=== PATIENT | female | born 1985 | race Caucasian/White ===

== ENCOUNTER 2016-07-17 10:54 | Day surgery (SDC) | payer BC, OTHER ==
--- NOTE | ~2016-07-17 | EGD ---
EGD REPORT [facility] [address] [id number] NAME: JOÃO REYES : 83 STATUS : REG [facility]#: [id number] AGE: 31 ADM/REG DATE : 07/17/16 MR#: [id number] REPORT SERV DATE: 07/17/16 DICTATED BY: NOEL LOCK DATE: 07/17/16 REPORT STATUS : Draft TRANSCRIBED BY: [facility] DATE: 07/17/16 Endoscopy Center Patient Name: João Reyes Date of : 1985 Attending MD: NOEL LOCK MD Procedure Date No Time: 07/17/2016 Procedure: Upper GI endoscopy Indications: Follow-up of gastro-esophageal reflux disease, Suspected celiac disease, Diarrhea Referring MD: CORA TAYLOR Medicines: Propofol per Anesthesia Complications: No immediate complications. Estimated blood loss: None. Procedure: Pre-Anesthesia Assessment: - After reviewing the risks and benefits, the patient was deemed in satisfactory condition to undergo the procedure. - Prior to the procedure, a History and Physical was performed, and patient medications and allergies were reviewed. The patient's tolerance of previous anesthesia was also reviewed. The risks and benefits of the procedure and the sedation options and risks were discussed with the patient. All questions were answered, and informed consent was obtained. Prior Anticoagulants: The patient has taken no previous anticoagulant or antiplatelet agents. ASA Grade Assessment: I - A normal, healthy patient. After reviewing the risks and benefits, the patient was deemed in satisfactory condition to undergo the procedure. After obtaining informed consent, the endoscope was passed under direct vision. Throughout the procedure, the patient's blood pressure, pulse, and oxygen saturations were monitored continuously. The GIF [id number] was introduced through the mouth, and advanced to the jejunum. The upper GI endoscopy was accomplished without difficulty. The patient tolerated the procedure well. Findings: Diffuse moderate erythema was found in the lower third of the esophagus. Biopsies were taken with a cold forceps for histology. Estimated blood loss: none. A gaping lower esophageal sphincter was found. The entire examined stomach and gastroesophageal junction (on retroflexion) were normal. The examined duodenum was normal. Biopsies were taken with a cold EGD REPORT [address] [address] NAME: JOÃO REYES : [birth year] [place] [facility]#: [id number] AGE: 31 ADM/REG DATE : 07/17/16 MR#: [id number] REPORT SERV DATE: 07/17/16 DICTATED BY: NOEL LOCK DATE: 07/17/16 REPORT STATUS : Draft TRANSCRIBED BY: [facility] DATE: 07/17/16 forceps for histology. Estimated blood loss: none. Impression: - Erythema in the lower third of the esophagus. Biopsied. - Gaping lower esophageal sphincter. - Normal stomach and gastroesophageal junction. - Normal examined duodenum. Biopsied. - NERD without significant symptoms currently. - Suspected gluten intolerance. - IBS. Recommendation: - Discharge patient to home (ambulatory). - Resume gluten-free diet as there was marked improvement with this previously. - Continue present medications. - Continue probiotic daily. - Continue Bentyl (dicyclomine) as needed for cramping. - Follow-up in the office as needed. - Await pathology results. - Patient has a contact number available for emergencies. The signs and symptoms of potential delayed complications were discussed with the patient. Return to normal activities tomorrow. Written discharge instructions were provided to the patient. Procedure Code(s): --- Professional --- 40909, Esophagogastroduodenoscopy, flexible, transoral; with biopsy, single or multiple Diagnosis Code(s): --- Professional --- K22.9, Disease of esophagus, unspecified K22.8, Other specified diseases of esophagus K21.9, Gastro-esophageal reflux disease without esophagitis R19.7, Diarrhea, unspecified CPT copyright 2013 [employer]. All rights reserved. The codes documented in this report are preliminary and upon tower helper review may be revised to meet current compliance requirements. NOEL LOCK MD 07/17/2016 12:55 PM This report has been signed electronically. Number of Addenda: 0 EGD REPORT [facility] [address] [id number] NAME: JOÃO REYES : [birth year] [place] [facility] [place]#: [id number] AGE: 31 ADM/REG DATE : 07/17/16 MR#: [id number] REPORT SERV DATE: 07/17/16 DICTATED BY: NOEL LOCK DATE: 07/17/16 REPORT STATUS : Draft TRANSCRIBED BY: [employer] DATE: 07/17/16 Note Initiated On: 07/17/2016 11:51 AM Scope Withdrawal Time 0 hours 0 minutes 0 seconds [address] [id number]
[~2016-07-17 10:54] MED LIST: LO LOESTRIN FE; MAGOX4 PO; MULTIPLE VIT PO; RHINOCORT; ZYRTEC ALLGY10 MG PO
== END 2016-07-17 23:59 | disposition home or self-care (01) ==
LOC: DMU 10:54
PROVIDERS: Internal Medicine Gastroenterology
PROC: 0DB98ZX Excision of Duodenum, Via Natural or Artificial Opening Endoscopic, Diagnostic (ICD-10-PCS; 2016-07-17)
PROC: 0DB38ZX Excision of Lower Esophagus, Via Natural or Artificial Opening Endoscopic, Diagnostic (ICD-10-PCS; principal; 2016-07-17 14:30)
DX: K22.8 Other specified diseases of esophagus (principal); K21.9 Gastro-esophageal reflux disease without esophagitis; L30.9 Dermatitis, unspecified; K58.0 Irritable bowel syndrome with diarrhea; C53.9 Malignant neoplasm of cervix uteri, unspecified; Z98.890 Other specified postprocedural states; Z90.89 Acquired absence of other organs; Z79.899 Other long term (current) drug therapy; Z79.52 Long term (current) use of systemic steroids
CPT/HCPCS: 84703; 88305